=== PATIENT | female | born 1950 | race African-American/Black ===

== ENCOUNTER 2016-04-13 12:08 | Emergency (ER) | payer MEDICARE, OTHER ==
[~2016-04-13] VITALS: Ht 157.5 cm; Wt 95.3 kg
[~2016-04-13 12:08] MED LIST: FOLIPOW28 PO; GABA250S PO; INSLANTI SC; METH2.5T30
[2016-04-13 12:24] VITALS: BP 130/74
[2016-04-13] MEDS ORDERED: cefTRIAXone SOD 1,000 MG VL ONE (13:27)
[2016-04-13] MEDS ORDERED: traMADol HCL 50 MG TAB PO ONE (13:30)
[2016-04-13] MEDS ORDERED: cefTRIAXone SOD 1,000 MG VL IM ONE (13:30)
== END 2016-04-13 13:58 | disposition home or self-care (01) ==
LOC: ER 12:10
DX: L03.317 Cellulitis of buttock (principal); E11.9 Type 2 diabetes mellitus without complications; I10 Essential (primary) hypertension; Z79.4 Long term (current) use of insulin; Z88.8 Allergy status to other drugs, medicaments and biological substances
CPT/HCPCS: 96372; 99283; J0696

== ENCOUNTER 2017-04-14 13:11 | Emergency (ER) | payer OTHER, MEDICAID ==
[~2017-04-14] VITALS: Ht 157.5 cm; Wt 95.3 kg
[2017-04-14] MEDS ORDERED: methylPREDNISolone SOD SUCC 125 MG/2 ML VL IM ONE (14:30)
[2017-04-14] MEDS ORDERED: IPRATROPIUM BROM 0.5 MG/2.5ML INH SOL NEB ONE (14:30)
[2017-04-14] MEDS ORDERED: ALBUTEROL SULF 2.5 MG/0.5ML(0.5%) NEB SOLN NEB ONE (14:30)
[2017-04-14] MEDS ORDERED: cefTRIAXone SOD 1,000 MG VL IM ONE (14:30)
[2017-04-14 15:37] VITALS: BP 144/86
== END 2017-04-14 15:38 | disposition home or self-care (01) ==
LOC: ER 13:11
DX: J18.9 Pneumonia, unspecified organism (principal); I10 Essential (primary) hypertension; E11.9 Type 2 diabetes mellitus without complications; Z79.4 Long term (current) use of insulin
CPT/HCPCS: 71046; 82962; 94640; 96372; 99284; J0696; J2930; 93005

== ENCOUNTER 2018-01-19 12:44 | Emergency (ER) | payer OTHER, MEDICAID ==
[~2018-01-19] VITALS: Ht 157.5 cm; Wt 74.8 kg
[2018-01-19] MEDS ORDERED: SODIUM CHLORIDE 0.9% 1,000 ML IV ONE (12:53)
[2018-01-19] MEDS ORDERED: DEXTROSE (50%) 50ML SYRG IV ONE (13:00)
[2018-01-19 14:38] LABS: Eosinophils # (auto) 0.1 uL; Lymphocytes # (auto) 0.7 uL; Monocytes # (auto) 0.6 uL; Nucleated Red Blood Cells % 0.1 %
[2018-01-19 14:40] LABS: Basophils # (auto) 0 uL; Basophils % (auto) 0.4 % (0.0-2.0); Eosinophils % (auto) 0.9 % (0.0-7.0); Hematocrit 38.8 % (36.0-46.0); Hemoglobin 11.9 g/dL (12.2-16.2); Lymphocytes % (auto) 7.5 % (10.0-50.0); Mean Corpuscular Hemoglobin 26.3 pg (28.0-32.0); Mean Corpuscular Hgb Conc. 30.7 g/dL (32.0-36.0); Mean Corpuscular Volume 85.5 fL (80.0-100.0); Monocytes % (auto) 6.7 % (0.0-12.0); Neutrophils # (auto) 7.5 uL; Neutrophils % (auto) 84.5 % (37.0-80.0); Platelet Count (auto) 472 10^3/uL (140-450); Red Blood Cells 4.54 10^6/uL (4.0-5.20); Red Cell Distribution Width 15.7 % (11.8-14.3); White Blood Cell 8.8 10^3/uL (4.4-10.8)
[2018-01-19 14:51] LABS: Alanine Aminotransferase 20 U/L (13-56); Anion Gap 6 (5-15); Blood Urea Nitrogen 21 mg/dL (7-18); Calcium 8.8 mg/dL (8.5-10.1); Carbon Dioxide 25 mmol/L (21-32); Chloride 107 mmol/L (98-107); Glucose 175 mg/dL (74-106); Potassium 3.6 mmol/L (3.5-5.1); Sodium 138 mmol/L (136-145)
[2018-01-19 14:55] LABS: Alkaline Phosphatase 143 U/L (45-117); Aspartate Aminotransferase 19 U/L (15-37); BUN/Creatinine Ratio 23.1; Bilirubin, Total 0.4 mg/dL (0.2-1.0); GFR African American 79 mL/min; GFR Non-African American 65 mL/min; Total Protein 7.8 g/dL (6.4-8.2)
[2018-01-19 18:26] VITALS: BP 162/86
== END 2018-01-19 18:29 | disposition home or self-care (01) ==
LOC: ER 12:44 → EDBD 12:44 → ER 18:29
DX: E11.649 Type 2 diabetes mellitus with hypoglycemia without coma (principal); R42 Dizziness and giddiness; I11.0 Hypertensive heart disease with heart failure; I50.9 Heart failure, unspecified; M19.90 Unspecified osteoarthritis, unspecified site; R51 Headache; Z95.0 Presence of cardiac pacemaker; Z79.4 Long term (current) use of insulin; Z88.6 Allergy status to analgesic agent
CPT/HCPCS: 36415; 71045; 80053; 82962; 83036; 84484; 85025; 96360; 99285; J7030

== ENCOUNTER 2018-03-19 11:15 | Emergency (ER) | payer OTHER, MEDICAID ==
[~2018-03-19] VITALS: Ht 157.5 cm; Wt 95.3 kg
[2018-03-19 12:45] VITALS: BP 174/88
== END 2018-03-19 13:48 | disposition home or self-care (01) ==
LOC: ER 11:15
DX: M25.512 Pain in left shoulder (principal); G89.29 Other chronic pain; I11.0 Hypertensive heart disease with heart failure; I50.9 Heart failure, unspecified; E11.9 Type 2 diabetes mellitus without complications; M19.90 Unspecified osteoarthritis, unspecified site; Z95.0 Presence of cardiac pacemaker; Z88.6 Allergy status to analgesic agent; Z79.4 Long term (current) use of insulin
CPT/HCPCS: 73030

== ENCOUNTER 2020-03-09 10:37 | Inpatient (IN) | payer OTHER, MEDICAID ==
[~2020-03-09] VITALS: Ht 157.5 cm; Wt 94.9 kg
[2020-03-09] MEDS: methylPREDNISolone SOD SUCC 125 MG/2 ML VL IV SCH (00:10)
[2020-03-09 12:11] LABS: Basophils # (auto) 0.1 10 ^3/uL (0-0.2); Basophils % (auto) 1.5 % (0.0-2.0); Eosinophils # (auto) 0.4 10 ^3/uL (0-0.8); Eosinophils % (auto) 5.8 % (0.0-7.0); Hematocrit 30.1 % (36.0-46.0); Hemoglobin 9.8 g/dL (12.2-16.2); Lymphocytes # (auto) 1.1 10 ^3/uL (0.4-5.4); Mean Corpuscular Hemoglobin 27.1 pg (28.0-32.0); Mean Corpuscular Hgb Conc. 32.7 g/dL (32.0-36.0); Monocytes # (auto) 0.5 10 ^3/uL (0-1.3); Monocytes % (auto) 8.9 % (0.0-12.0); Neutrophils % (auto) 65.8 % (37.0-80.0); Nucleated Red Blood Cells % 0.2 %; Platelet Count (auto) 401 10^3/uL (140-450); Red Blood Cells 3.63 10^6/uL (4.0-5.20); Red Cell Distribution Width 19.2 % (11.8-14.3); White Blood Cell 6.1 10^3/uL (4.4-10.8)
[2020-03-09 12:26] LABS: Albumin 2.7 g/dL (3.4-5.0); Calcium 8.3 mg/dL (8.5-10.1); Potassium 3.5 mmol/L (3.5-5.1)
[2020-03-09] MEDS ORDERED: ZINC SULFATE 220mg CAP or TAB PO ONE (12:30)
[2020-03-09] MEDS ORDERED: CHOLECALCIFEROL (VITD3) 2,000 UNIT CAP PO ONE (12:30)
[2020-03-09] MEDS ORDERED: AZITHROMYCIN 500MG/ 250ML 250 ML IV ONE (12:30)
[2020-03-09] MEDS ORDERED: methylPREDNISolone SOD SUCC 125 MG/2 ML VL IV ONE (12:30)
[2020-03-09] MEDS ORDERED: ASCORBIC ACID 500 MG TAB PO ONE (12:30)
[2020-03-09 12:34] LABS: BUN/Creatinine Ratio 11.4; Bilirubin, Total 0.5 mg/dL (0.2-1.0); CRP High Sensitivity 1.23 mg/dL (< 0.3); Total Protein 7.8 g/dL (6.4-8.2)
[2020-03-09] MEDS ORDERED: MORPHINE SULF INJ 2 MG/ML SYRINGE 1ML IV PRN (15:30)
[2020-03-09] MEDS ORDERED: ACETAMINOPHEN 500 MG TAB PO PRN (15:30)
[2020-03-09] MEDS ORDERED: ONDANSETRON HCL 4 MG/2 ML VIAL IV PRN (15:30)
[2020-03-09] MEDS ORDERED: NITROGLYCERIN 0.4 MG SL TAB SL PRN (15:30)
[2020-03-09] MEDS ORDERED: cloNIDine HCL 0.1 MG TAB PO ONE (16:15)
[2020-03-09] MEDS ORDERED: HYDROcodone-ACET 10/325MG TAB ONE (16:34)
[2020-03-09 16:39] LABS: Magnesium 2.1 mg/dL (1.6-2.6)
[2020-03-09] MEDS ORDERED: DEXTROSE (50%) 50ML SYRG IV PRN (17:15)
[2020-03-09] MEDS: FOLATE PO SCH (17:53)
[2020-03-09] MEDS: DOXYCYCLINE 100MG/250ML 250 ML IV SCH (18:36)
[2020-03-09] MEDS: BUDESONIDE (INHALATION) 180 MCG IH IN SCH (19:46)
[2020-03-09] MEDS: ALBUTEROL SULF HFA 90MCG INH 200DOSE IN PRN (20:07)
[2020-03-09] MEDS: NEURONTIN PO SCH (22:00)
[2020-03-10] MEDS: ACCU-CHEK COMFORT CURVE STRIP VI SCH ×5 (00:28→22:04)
[2020-03-10] MEDS: INSULIN LANTUS (GLARGINE) 1 /0.01ml (100units/ml) SC SCH ×2 (00:29→23:50)
[2020-03-10] MEDS: InsuLIN REG 1unit/0.01ml Soln (100units/ml) SC SCH ×5 (00:30→21:45)
[2020-03-10 00:34] VITALS: BP 144/74
[2020-03-10] MEDS: hydrALAZINE HCL 20 MG/ML VL IV PRN ×3 (00:44→23:33)
[2020-03-10] MEDS: DOXYCYCLINE 100MG/250ML 250 ML IV SCH ×2 (03:30→15:00)
[2020-03-10 04:00] VITALS: BP 197/101
[2020-03-10] MEDS: ALBUTEROL SULF HFA 90MCG INH 200DOSE IN PRN ×2 (08:04→20:53)
[2020-03-10] MEDS: BUDESONIDE (INHALATION) 180 MCG IH IN SCH ×2 (08:04→19:36)
[2020-03-10] MEDS: methylPREDNISolone SOD SUCC 125 MG/2 ML VL IV SCH (09:56)
[2020-03-10] MEDS: PANTOPRAZOLE 40 MG/10 ML VIAL INJ IV SCH (09:56)
[2020-03-10] MEDS: ENOXAPARIN SOD 40 MG/0.4 ML SYRINGE SC SCH (09:57)
[2020-03-10] MEDS: ZINC SULFATE 220mg CAP or TAB PO SCH (09:57)
[2020-03-10] MEDS: ASCORBIC ACID 1,000 MG TAB PO SCH (09:57)
[2020-03-10] MEDS: MORPHINE SULF INJ 2 MG/ML SYRINGE 1ML IV PRN ×2 (09:58→21:44)
[2020-03-10] MEDS: CHOLECALCIFEROL (VITD3) 2,000 UNIT CAP PO SCH (10:00)
[2020-03-10 10:15] LABS: Basophils # (auto) 0 10 ^3/uL (0-0.2); Basophils % (auto) 0.7 % (0.0-2.0); Eosinophils # (auto) 0 10 ^3/uL (0-0.8); Hematocrit 32.6 % (36.0-46.0); Hemoglobin 10.7 g/dL (12.2-16.2); Lymphocytes # (auto) 0.8 10 ^3/uL (0.4-5.4); Lymphocytes % (auto) 12.5 % (10.0-50.0); Mean Corpuscular Hemoglobin 27.4 pg (28.0-32.0); Mean Corpuscular Hgb Conc. 32.7 g/dL (32.0-36.0); Mean Corpuscular Volume 83.7 fL (80.0-100.0); Monocytes # (auto) 0.2 10 ^3/uL (0-1.3); Monocytes % (auto) 2.4 % (0.0-12.0); Neutrophils # (auto) 5.7 10 ^3/uL (1.6-8.6); Neutrophils % (auto) 84.4 % (37.0-80.0); Nucleated Red Blood Cells % 0.2 %; Platelet Count (auto) 425 10^3/uL (140-450); Red Cell Distribution Width 19.1 % (11.8-14.3); White Blood Cell 6.7 10^3/uL (4.4-10.8)
[2020-03-10 10:25] LABS: Albumin 2.8 g/dL (3.4-5.0); Calcium 8.5 mg/dL (8.5-10.1); Potassium 3.6 mmol/L (3.5-5.1)
[2020-03-10 10:31] LABS: BUN/Creatinine Ratio 15.1; Bilirubin, Total 0.4 mg/dL (0.2-1.0); Total Protein 8.4 g/dL (6.4-8.2)
[2020-03-10] MEDS: DOCUSATE CALCIUM 240 MG CAP PO PRN (11:44)
[2020-03-10] MEDS: HYDROcodone-ACET 10/325MG TAB PO PRN ×2 (11:45→18:00)
[2020-03-10] MEDS ORDERED: LOSARTAN POTASSIUM 50 MG TAB PO ONE (14:15)
[2020-03-10] MEDS ORDERED: DexAMETHasone SOD PHOS 10MG/1ML VIAL INJ IV ONE (14:15)
[2020-03-10 15:56] VITALS: BP 158/85
[2020-03-10] MEDS ORDERED: ETAN50IN5 SUBCUT (17:14)
[2020-03-10] MEDS ORDERED: HYDR-4072 PO (17:18)
[2020-03-10] MEDS ORDERED: METF-370 PO (17:18)
[2020-03-10] MEDS ORDERED: LOSA-39 PO (17:45)
[2020-03-10] MEDS: FOLATE PO SCH (18:00)
[2020-03-10] MEDS: NEURONTIN PO SCH (22:00)
[2020-03-11] VITALS: BP 184/97
[2020-03-11 00:35] VITALS: BP 144/74
[2020-03-11] MEDS: DOXYCYCLINE 100MG/250ML 250 ML IV SCH ×2 (03:30→16:20)
[2020-03-11] MEDS: InsuLIN REG 1unit/0.01ml Soln (100units/ml) SC SCH ×4 (06:27→21:48)
[2020-03-11] MEDS: ACCU-CHEK COMFORT CURVE STRIP VI SCH ×4 (06:29→22:20)
[2020-03-11] MEDS: BUDESONIDE (INHALATION) 180 MCG IH IN SCH ×2 (06:30→19:22)
[2020-03-11 08:00] VITALS: BP 155/88
[2020-03-11] MEDS: ZINC SULFATE 220mg CAP or TAB PO SCH (10:24)
[2020-03-11] MEDS: PANTOPRAZOLE 40 MG/10 ML VIAL INJ IV SCH (10:24)
[2020-03-11] MEDS: CHOLECALCIFEROL (VITD3) 2,000 UNIT CAP PO SCH (10:24)
[2020-03-11] MEDS: ASCORBIC ACID 1,000 MG TAB PO SCH (10:24)
[2020-03-11] MEDS: ENOXAPARIN SOD 40 MG/0.4 ML SYRINGE SC SCH (10:25)
[2020-03-11] MEDS: DexAMETHasone SOD PHOS 10MG/1ML VIAL INJ IV SCH (10:25)
[2020-03-11] MEDS: LOSARTAN POTASSIUM 50 MG TAB PO SCH (10:28)
[2020-03-11 10:51] LABS: Potassium 3.9 mmol/L (3.5-5.1)
[2020-03-11 11:01] LABS: BUN/Creatinine Ratio 17.1; Calcium 8.9 mg/dL (8.5-10.1)
[2020-03-11] MEDS: MORPHINE SULF INJ 2 MG/ML SYRINGE 1ML IV PRN ×2 (11:07→22:03)
[2020-03-11] MEDS: LIDOCAINE 5% TOPICAL PATCH TOP SCH (11:07)
[2020-03-11 16:00] VITALS: BP 145/94
[2020-03-11] MEDS: FOLATE PO SCH (18:00)
[2020-03-11] MEDS: ALBUTEROL SULF HFA 90MCG INH 200DOSE IN PRN (19:22)
[2020-03-11] MEDS: NEURONTIN PO SCH (22:00)
[2020-03-11] MEDS: INSULIN LANTUS (GLARGINE) 1 /0.01ml (100units/ml) SC SCH (22:00)
[2020-03-11 22:07] LABS: Urine Bacteria FEW /hpf (None Seen); Urine Blood Negative /uL (Negative); Urine Specific Gravity 1.014 (1.001-1.035); Urine WBC 2 /hpf (0 - 5)
[2020-03-12] VITALS: BP 165/96
[2020-03-12] MEDS: hydrALAZINE HCL 20 MG/ML VL IV PRN (00:22)
[2020-03-12 01:30] VITALS: BP 127/74
[2020-03-12] MEDS: DOXYCYCLINE 100MG/250ML 250 ML IV SCH ×2 (03:06→18:18)
[2020-03-12] MEDS: ACCU-CHEK COMFORT CURVE STRIP VI SCH ×4 (05:58→22:00)
[2020-03-12] MEDS: InsuLIN REG 1unit/0.01ml Soln (100units/ml) SC SCH ×4 (05:59→22:32)
[2020-03-12 07:06] LABS: Basophils # (auto) 0 10 ^3/uL (0-0.2); Basophils % (auto) 0.5 % (0.0-2.0); Eosinophils # (auto) 0 10 ^3/uL (0-0.8); Eosinophils % (auto) 0.1 % (0.0-7.0); Hemoglobin 9.1 g/dL (12.2-16.2); Lymphocytes # (auto) 1.4 10 ^3/uL (0.4-5.4); Lymphocytes % (auto) 15.5 % (10.0-50.0); Mean Corpuscular Hgb Conc. 32.6 g/dL (32.0-36.0); Mean Corpuscular Volume 82.9 fL (80.0-100.0); Monocytes # (auto) 0.8 10 ^3/uL (0-1.3); Monocytes % (auto) 9.7 % (0.0-12.0); Neutrophils # (auto) 6.4 10 ^3/uL (1.6-8.6); Neutrophils % (auto) 74.2 % (37.0-80.0); Nucleated Red Blood Cells % 0.1 %; Platelet Count (auto) 466 10^3/uL (140-450); Red Blood Cells 3.38 10^6/uL (4.0-5.20); Red Cell Distribution Width 19.3 % (11.8-14.3); White Blood Cell 8.7 10^3/uL (4.4-10.8)
[2020-03-12 08:00] VITALS: BP 136/73
[2020-03-12] MEDS: BUDESONIDE (INHALATION) 180 MCG IH IN SCH ×2 (08:17→18:54)
[2020-03-12] MEDS: ALBUTEROL SULF HFA 90MCG INH 200DOSE IN PRN ×2 (08:17→18:54)
[2020-03-12] MEDS: ENOXAPARIN SOD 40 MG/0.4 ML SYRINGE SC SCH (10:18)
[2020-03-12] MEDS: LIDOCAINE 5% TOPICAL PATCH TOP SCH (10:18)
[2020-03-12] MEDS: PANTOPRAZOLE 40 MG/10 ML VIAL INJ IV SCH (10:18)
[2020-03-12] MEDS: ZINC SULFATE 220mg CAP or TAB PO SCH (10:18)
[2020-03-12] MEDS: LOSARTAN POTASSIUM 50 MG TAB PO SCH (10:19)
[2020-03-12] MEDS: ASCORBIC ACID 1,000 MG TAB PO SCH (10:19)
[2020-03-12] MEDS: CHOLECALCIFEROL (VITD3) 2,000 UNIT CAP PO SCH (10:20)
[2020-03-12] MEDS: DexAMETHasone SOD PHOS 10MG/1ML VIAL INJ IV SCH (10:20)
[2020-03-12] MEDS: HYDROcodone-ACET 10/325MG TAB PO PRN (14:05)
[2020-03-12 16:00] VITALS: BP 142/80
[2020-03-12] MEDS: FOLATE PO SCH (18:00)
[2020-03-12] MEDS: NEURONTIN PO SCH (22:00)
[2020-03-12] MEDS: INSULIN LANTUS (GLARGINE) 1 /0.01ml (100units/ml) SC SCH (22:00)
[2020-03-12] MEDS: MORPHINE SULF INJ 2 MG/ML SYRINGE 1ML IV PRN (22:06)
[2020-03-13] VITALS: BP 153/90
[2020-03-13] MEDS: hydrALAZINE HCL 20 MG/ML VL IV PRN (00:34)
[2020-03-13 01:37] VITALS: BP 132/63
[2020-03-13] MEDS: DOXYCYCLINE 100MG/250ML 250 ML IV SCH ×2 (04:17→15:34)
[2020-03-13] MEDS: InsuLIN REG 1unit/0.01ml Soln (100units/ml) SC SCH ×4 (06:15→21:08)
[2020-03-13] MEDS: BUDESONIDE (INHALATION) 180 MCG IH IN SCH ×2 (06:30→19:14)
[2020-03-13] MEDS: ACCU-CHEK COMFORT CURVE STRIP VI SCH ×4 (07:00→21:17)
[2020-03-13 08:00] VITALS: BP 148/86
[2020-03-13] MEDS: DexAMETHasone SOD PHOS 10MG/1ML VIAL INJ IV SCH (10:16)
[2020-03-13] MEDS: CHOLECALCIFEROL (VITD3) 2,000 UNIT CAP PO SCH (10:16)
[2020-03-13] MEDS: ZINC SULFATE 220mg CAP or TAB PO SCH (10:16)
[2020-03-13] MEDS: ASCORBIC ACID 1,000 MG TAB PO SCH (10:16)
[2020-03-13] MEDS: ENOXAPARIN SOD 40 MG/0.4 ML SYRINGE SC SCH (10:16)
[2020-03-13] MEDS: PANTOPRAZOLE 40 MG/10 ML VIAL INJ IV SCH (10:16)
[2020-03-13] MEDS: LOSARTAN POTASSIUM 50 MG TAB PO SCH (10:17)
[2020-03-13] MEDS: LIDOCAINE 5% TOPICAL PATCH TOP SCH (10:28)
[2020-03-13] MEDS: HYDROcodone-ACET 10/325MG TAB PO PRN ×2 (12:22→21:18)
[2020-03-13] MEDS: FOLATE PO SCH (15:54)
[2020-03-13 16:00] VITALS: BP 152/82
[2020-03-13] MEDS: ALBUTEROL SULF HFA 90MCG INH 200DOSE IN PRN (19:15)
[2020-03-13] MEDS: INSULIN LANTUS (GLARGINE) 1 /0.01ml (100units/ml) SC SCH (21:16)
[2020-03-13] MEDS: NEURONTIN PO SCH (21:16)
[2020-03-13] MEDS: MORPHINE SULF INJ 2 MG/ML SYRINGE 1ML IV PRN (23:17)
[2020-03-14 00:14] VITALS: BP 198/98
[2020-03-14] MEDS: hydrALAZINE HCL 20 MG/ML VL IV PRN (00:18)
[2020-03-14 00:20] VITALS: BP 160/100
[2020-03-14 01:16] VITALS: BP 144/92
[2020-03-14] MEDS: DOXYCYCLINE 100MG/250ML 250 ML IV SCH ×2 (03:23→14:41)
[2020-03-14] MEDS: InsuLIN REG 1unit/0.01ml Soln (100units/ml) SC SCH ×4 (06:23→22:11)
[2020-03-14] MEDS: ACCU-CHEK COMFORT CURVE STRIP VI SCH ×4 (06:24→22:12)
[2020-03-14 08:00] VITALS: BP 148/86
[2020-03-14] MEDS: DexAMETHasone SOD PHOS 10MG/1ML VIAL INJ IV SCH (09:39)
[2020-03-14] MEDS: PANTOPRAZOLE 40 MG/10 ML VIAL INJ IV SCH (09:39)
[2020-03-14] MEDS: ZINC SULFATE 220mg CAP or TAB PO SCH (09:39)
[2020-03-14] MEDS: LOSARTAN POTASSIUM 50 MG TAB PO SCH (09:40)
[2020-03-14] MEDS: ASCORBIC ACID 1,000 MG TAB PO SCH (09:41)
[2020-03-14] MEDS: ENOXAPARIN SOD 40 MG/0.4 ML SYRINGE SC SCH (09:42)
[2020-03-14] MEDS: CHOLECALCIFEROL (VITD3) 2,000 UNIT CAP PO SCH (09:42)
[2020-03-14] MEDS: LIDOCAINE 5% TOPICAL PATCH TOP SCH (09:43)
[2020-03-14] MEDS: BUDESONIDE (INHALATION) 180 MCG IH IN SCH ×2 (10:00→20:24)
[2020-03-14] MEDS: MORPHINE SULF INJ 2 MG/ML SYRINGE 1ML IV PRN ×2 (10:02→20:40)
[2020-03-14 16:17] VITALS: BP 161/102
[2020-03-14 16:18] VITALS: BP 164/99
[2020-03-14] MEDS: FOLATE PO SCH (18:00)
[2020-03-14] MEDS: ALBUTEROL SULF HFA 90MCG INH 200DOSE IN PRN (20:24)
[2020-03-14] MEDS: NEURONTIN PO SCH (22:00)
[2020-03-14] MEDS: INSULIN LANTUS (GLARGINE) 1 /0.01ml (100units/ml) SC SCH (22:12)
[2020-03-14] MEDS: DOCUSATE CALCIUM 240 MG CAP PO PRN (22:28)
[2020-03-15] VITALS: BP 158/85
[2020-03-15] MEDS: MORPHINE SULF INJ 2 MG/ML SYRINGE 1ML IV PRN ×4 (02:36→16:51)
[2020-03-15] MEDS: DOXYCYCLINE 100MG/250ML 250 ML IV SCH ×2 (02:41→15:18)
[2020-03-15] MEDS: InsuLIN REG 1unit/0.01ml Soln (100units/ml) SC SCH ×3 (06:13→17:20)
[2020-03-15] MEDS: ACCU-CHEK COMFORT CURVE STRIP VI SCH ×3 (06:13→17:20)
[2020-03-15] MEDS: BUDESONIDE (INHALATION) 180 MCG IH IN SCH (07:22)
[2020-03-15] MEDS: ALBUTEROL SULF HFA 90MCG INH 200DOSE IN PRN (07:22)
[2020-03-15 08:00] VITALS: BP 141/89
[2020-03-15] MEDS: DexAMETHasone SOD PHOS 10MG/1ML VIAL INJ IV SCH (09:05)
[2020-03-15] MEDS: PANTOPRAZOLE 40 MG/10 ML VIAL INJ IV SCH (09:05)
[2020-03-15] MEDS: LOSARTAN POTASSIUM 50 MG TAB PO SCH (09:06)
[2020-03-15] MEDS: ZINC SULFATE 220mg CAP or TAB PO SCH (09:06)
[2020-03-15] MEDS: ASCORBIC ACID 1,000 MG TAB PO SCH (09:06)
[2020-03-15] MEDS: LIDOCAINE 5% TOPICAL PATCH TOP SCH (09:07)
[2020-03-15] MEDS: ENOXAPARIN SOD 40 MG/0.4 ML SYRINGE SC SCH (09:07)
[2020-03-15] MEDS: CHOLECALCIFEROL (VITD3) 2,000 UNIT CAP PO SCH (09:07)
[2020-03-15 16:00] VITALS: BP 150/82
[2020-03-15] MEDS: FOLATE PO SCH (17:34)
== END 2020-03-15 18:23 | DRG 551 ==
LOC: ER 10:37 → TELE 10:38 → TELE-WESTW 03-10 03:14
PROVIDERS: ADMIT Family Medicine; ATTEND Internal Medicine Geriatric Medicine
DX: S32.021A Stable burst fracture of second lumbar vertebra, initial encounter for closed fracture (principal); U07.1 COVID-19; E43 Unspecified severe protein-calorie malnutrition; R79.82 Elevated C-reactive protein (CRP); J45.909 Unspecified asthma, uncomplicated; E11.65 Type 2 diabetes mellitus with hyperglycemia; I12.9 Hypertensive chronic kidney disease with stage 1 through stage 4 chronic kidney disease, or unspecified chronic kidney disease; D63.1 Anemia in chronic kidney disease; E11.22 Type 2 diabetes mellitus with diabetic chronic kidney disease; M16.10 Unilateral primary osteoarthritis, unspecified hip; G47.33 Obstructive sleep apnea (adult) (pediatric); R79.89 Other specified abnormal findings of blood chemistry; M43.16 Spondylolisthesis, lumbar region; M06.9 Rheumatoid arthritis, unspecified; M48.061 Spinal stenosis, lumbar region without neurogenic claudication; N18.9 Chronic kidney disease, unspecified; W18.30XA Fall on same level, unspecified, initial encounter; Z88.8 Allergy status to other drugs, medicaments and biological substances; Y99.8 Other external cause status; Y93.89 Activity, other specified; Y92.009 Unspecified place in unspecified non-institutional (private) residence as the place of occurrence of the external cause; Z75.1 Person awaiting admission to adequate facility elsewhere; Z79.4 Long term (current) use of insulin; Z86.73 Personal history of transient ischemic attack (TIA), and cerebral infarction without residual deficits
CPT/HCPCS: 36415; 70450; 71045; 72131; 72192; 80048; 80053; 81001; 82306; 82728; 82962; 83036; 83605; 83615; 83735; 83880; 84443; 84484; 85025; 85379; 86141; 86850; 86900; 86901; 87426; 93005; 94640; 96365; 96375; C9113; G0378; J1100; J1815; J3490